=== PATIENT | male | born 1945 | race Caucasian/White ===

== ENCOUNTER → 2017-11-20 | Outpatient (CLI) | payer MEDICARE, BC ==
[~2017-11-20] MED LIST: Glucosamine Ch1 EAC3 PO
== END | disposition home or self-care (01) ==
LOC: PLD 10:45 → LAB SHORT 10:45
DX: D48.5 Neoplasm of uncertain behavior of skin (principal)
CPT/HCPCS: 88305

== ENCOUNTER → 2018-05-26 | Outpatient (CLI) | payer MEDICARE, BC | END | disposition home or self-care (01) | LOC: PLD 10:05 → LAB SHORT 10:05 | DX: D48.5 Neoplasm of uncertain behavior of skin (principal) | CPT/HCPCS: 88305 ==

== ENCOUNTER 2019-02-16 08:47 | Day surgery (SDC) | payer MEDICARE, BC ==
[~2019-02-16] VITALS: Ht 188 cm; Wt 88.3 kg
[~2019-02-16 08:47] MED LIST changes: +ASCO500 PO; +B Complex-Foli1 EACH PO; +VITAMIN D31000 UNI2 PO
== END 2019-02-16 10:37 | disposition home or self-care (01) ==
LOC: ORSCSDS 08:47
PROVIDERS: Surgery
PROC: 0DJD8ZZ Inspection of Lower Intestinal Tract, Via Natural or Artificial Opening Endoscopic (ICD-10-PCS; principal; 2019-02-16 10:00)
DX: Z12.11 Encounter for screening for malignant neoplasm of colon (principal); Z86.010 Personal history of colon polyps; Z80.0 Family history of malignant neoplasm of digestive organs; Z85.038 Personal history of other malignant neoplasm of large intestine; I10 Essential (primary) hypertension
CPT/HCPCS: J2704; J7120

== ENCOUNTER → 2020-05-29 | Outpatient (CLI) | payer MEDICARE, BC | LOC: LAB SHORT 15:59 → PLD 15:59 | DX: D48.5 Neoplasm of uncertain behavior of skin (principal) | CPT/HCPCS: 88305 ==

== ENCOUNTER 2024-07-16 05:51 | Day surgery (SDC) | payer MEDICARE, BC ==
[~2024-07-16] VITALS: Ht 188 cm; Wt 91.0 kg
[~2024-07-16 05:51] MED LIST changes: +MAGNESIUM OXID400 M5 PO; +METO25ER PO
[2024-07-16] MEDS ORDERED: NS 250 ML IV ONE (06:32)
[2024-07-16] MEDS ORDERED: Lidocaine 2%-Epineph 1:100000 20 ML MDV ONE (07:11)
[2024-07-16] MEDS ORDERED: CeFAZolin Sodium 1000 mg Vial ONE (08:00)
[2024-07-16] MEDS ORDERED: CeFAZolin Sodium 2,000 MG VIAL ONE (08:00)
[2024-07-16] MEDS ORDERED: NS 1,000 ML IV ONE ×2 (08:00→08:01)
[2024-07-16] MEDS ORDERED: NS 50 ML IV ONE (08:00)
[2024-07-16] MEDS ORDERED: Heparin Sodium 1000 Units/ML 10ML MDV ONE (08:02)
[2024-07-16] MEDS ORDERED: Bupivacaine 0.5% HCl 5 MG/ML 30MLVIAL ONE (08:02)
[2024-07-16] MEDS ORDERED: Midazolam HCl 1MG / ML 2ML Vial ONE ×2 (08:25→10:14)
[2024-07-16] MEDS ORDERED: FentaNYL Citrate 50 MCG/ML 2 ML Injection ONE (08:26)
--- NOTE | 2024-07-16 08:33 | NUR ---
PT AND VERBALIZED UNDERSTANDING OF WRITTEN AND VERBAL D/C INST. PT TAKEN OUT OF THE DEPARTMENT VIA W/C.
== END 2024-07-16 23:00 | disposition home or self-care (01) ==
LOC: MHTC 05:51
DX: R55 Syncope and collapse (principal); G47.33 Obstructive sleep apnea (adult) (pediatric); E78.2 Mixed hyperlipidemia; I47.10 Supraventricular tachycardia, unspecified; Z79.899 Other long term (current) drug therapy
CPT/HCPCS: 33285; C1764; J0690; J1644; J2250; J3010; J7030; J7040; J7050

== ENCOUNTER 2024-08-19 10:59 | Day surgery (SDC) | payer MEDICARE, BC ==
[~2024-08-19] VITALS: Ht 289.6 cm; Wt 87.9 kg
[~2024-08-19 10:59] MED LIST changes: +ALBU2.5V5 INH; +AMLO5 PO; +ARNUITY ELLIPT50 MCG IH; +IRBE150; +Lactated Ringer's 1,000 ML IV ONE; +MONT10T PO; +OMEP20ER PO; +propofoL 50 ML IV ONE
[2024-08-19] MEDS ORDERED: METO25ER (12:03)
[2024-08-19] MEDS ORDERED: CENTRUM SILVER1 EAC2 (12:04)
[2024-08-19 13:58] VITALS: BP 108/67
== END 2024-08-19 14:06 | disposition home or self-care (01) ==
LOC: ORSCSDS 10:59
PROVIDERS: Surgery
PROC: 0DBC8ZX Excision of Ileocecal Valve, Via Natural or Artificial Opening Endoscopic, Diagnostic (ICD-10-PCS; principal; 2024-08-19 13:00)
PROC: 0DBL8ZX Excision of Transverse Colon, Via Natural or Artificial Opening Endoscopic, Diagnostic (ICD-10-PCS; principal; 2024-08-19 13:00)
DX: D64.9 Anemia, unspecified (principal); K63.5 Polyp of colon; D12.3 Benign neoplasm of transverse colon; K64.0 First degree hemorrhoids; K64.1 Second degree hemorrhoids; Z90.49 Acquired absence of other specified parts of digestive tract; Z85.038 Personal history of other malignant neoplasm of large intestine; Z80.0 Family history of malignant neoplasm of digestive organs; Z86.718 Personal history of other venous thrombosis and embolism; E78.2 Mixed hyperlipidemia; G47.33 Obstructive sleep apnea (adult) (pediatric); I47.10 Supraventricular tachycardia, unspecified; R55 Syncope and collapse; Z79.899 Other long term (current) drug therapy
CPT/HCPCS: 88305; J2704